=== PATIENT | female | born 1940 | race Caucasian/White ===

== ENCOUNTER 2017-10-19 06:56 | Inpatient (IN) | payer MEDICARE, BC ==
[~2017-10-19] VITALS: Ht 162.6 cm; Wt 59.0 kg
[2017-10-19] MEDS ORDERED: diltiazem-D5W 125mg/125ml 125 ML IV ONE (07:08)
[2017-10-19] MEDS ORDERED: diltiazem 5mg/ml 5ml inj. IV ONE ×2 (07:10→10:25)
[2017-10-19 08:20] LABS: BASOPHILS # (AUTO) 0.1 X10'3 (0-0.2); BASOPHILS % (AUTO) 0.6 % (0-1); EOSINOPHILS # (AUTO) 0.1 X10'3 (0-0.9); EOSINOPHILS % (AUTO) 1.7 % (0-6); HEMATOCRIT 40.4 % (35.0-45.0); HEMOGLOBIN 13.9 g/dl (12.0-16.0); LYMPHOCYTES # (AUTO) 1.6 X10'3 (1.1-4.8); LYMPHOCYTES % (AUTO) 18.4 % (21-51); MEAN CORPUSCULAR HEMOGLOBIN 32.1 PG (27.0-31.0); MEAN CORPUSCULAR HGB CONC 34.5 % (33.0-36.5); MEAN CORPUSCULAR VOLUME 93.2 FL (78-98); MEAN PLATELET VOLUME 8.4 FL (7.4-10.4); MONOCYTES # (AUTO) 0.6 X10'3 (0-0.9); NEUTROPHILS # (AUTO) 6.4 X10'3 (1.8-7.7); NEUTROPHILS % (AUTO) 72.3 % (42-75); PLATELET COUNT 381 X10'3 (140-440); RED BLOOD COUNT 4.34 X10'6 (4.20-5.60); RED CELL DISTRIBUTION WIDTH 13.7 % (11.5-14.5); WHITE BLOOD COUNT 8.9 X10'3 (4.5-11.0)
[2017-10-19 08:34] LABS: PARTIAL THROMBOPLASTIN TIME 30 SECONDS (22-32); PROTHROMBIN TIME 10.1 SECONDS (9.0-12.0)
[2017-10-19 08:36] LABS: ALANINE AMINOTRANSFERASE 36 U/L (12-78); ALBUMIN 3.8 G/DL (3.4-5.0); ALBUMIN/GLOBULIN RATIO 0.9 (1.1-1.5); ALKALINE PHOSPHATASE 121 IU/L (46-116); ANION GAP 12 (8-16); ASPARTATE AMINO TRANSFERASE 16 U/L (10-37); BILIRUBIN,TOTAL 0.4 MG/DL (0.1-1.0); BLOOD UREA NITROGEN 14 MG/DL (7-18); CALCIUM 9.3 MG/DL (8.5-10.1); CHLORIDE 102 MMOL/L (99-107); GLUCOSE 132 MG/DL (70-104); POTASSIUM 3.6 MMOL/L (3.5-5.1); SODIUM 142 MMOL/L (135-145); TOTAL CARBON DIOXIDE 28.4 MMOL/L (24-32); TOTAL PROTEIN 8.1 G/DL (6.4-8.2); eGFR 81 ML/MIN
[2017-10-19] MEDS: normal saline 1000ml 1,000 ML IV SCH (08:53)
[2017-10-19] MEDS ORDERED: potassium Cl 20 mEq SR tablet PO PRN ×2 (08:55)
[2017-10-19] MEDS ORDERED: potassium Cl 40MEQ/NS 500ml 500 ML IV PRN ×2 (08:55)
[2017-10-19] MEDS ORDERED: magnesium hydroxide 30ml (MOM) UD suspension PO PRN (08:55)
[2017-10-19] MEDS ORDERED: magnesium Cl slow-release 64mg tablet PO PRN (08:55)
[2017-10-19] MEDS ORDERED: magnesium 4gm in 100ml NS 100 ML IV PRN (08:55)
[2017-10-19] MEDS ORDERED: mag hydrox/Alum hydrox/simeth 30ml oral suspension PO PRN (08:55)
[2017-10-19] MEDS ORDERED: ondansetron/PF 4mg/2ml inj IV PRN (08:55)
[2017-10-19] MEDS ORDERED: diltiazem-D5W 125mg/125ml 125 ML IV SCH (08:55)
[2017-10-19] MEDS ORDERED: magnesium 2GM in 50ml NS 50 ML IV PRN (08:55)
[2017-10-19] MEDS ORDERED: acetaminophen 325mg tablet PO PRN (08:55)
[2017-10-19] MEDS: diltiazem-D5W 125mg/125ml 125 ML IV SCH ×2 (10:25→17:37)
[2017-10-19] MEDS ORDERED: CARSR60C PO (10:57)
[2017-10-19] MEDS ORDERED: APIX5TAB3 PO (10:57)
[2017-10-19] MEDS ORDERED: ATOR10TA87 PO (10:59)
[2017-10-19] MEDS ORDERED: [UNRECOGNIZED DRUG - CODE] (10:59)
[2017-10-19] MEDS ORDERED: NORT10CA81 PO (14:41)
[2017-10-19 18:00] VITALS: BP 149/74
[2017-10-19 19:00] VITALS: BP 153/74
[2017-10-19 20:00] VITALS: BP 143/65
[2017-10-19] MEDS: nortriptyline 10mg capsule PO SCH (20:09)
[2017-10-19] MEDS: diltiazem SR 60mg capsule (twice daily) PO SCH (20:09)
[2017-10-19] MEDS: furosemide 40mg/4ml inj IV SCH (22:00)
[2017-10-19 23:00] VITALS: BP 148/67
[2017-10-20 03:00] VITALS: BP 141/72
[2017-10-20 06:00] VITALS: BP 129/69
[2017-10-20 06:21] LABS: HEMATOCRIT 36.1 % (35.0-45.0); HEMOGLOBIN 12.6 g/dl (12.0-16.0); MEAN CORPUSCULAR HEMOGLOBIN 32.6 PG (27.0-31.0); MEAN PLATELET VOLUME 8.1 FL (7.4-10.4); PLATELET COUNT 382 X10'3 (140-440); RED BLOOD COUNT 3.88 X10'6 (4.20-5.60); RED CELL DISTRIBUTION WIDTH 13.6 % (11.5-14.5); WHITE BLOOD COUNT 7.6 X10'3 (4.5-11.0)
[2017-10-20 06:38] LABS: ALBUMIN 3.2 G/DL (3.4-5.0); ANION GAP 7 (8-16); BLOOD UREA NITROGEN 11 MG/DL (7-18); BUN/CREATININE RATIO 18.3 (6.6-38.0); CALCIUM 8.9 MG/DL (8.5-10.1); CHLORIDE 103 MMOL/L (99-107); GLUCOSE 102 MG/DL (70-104); PHOSPHORUS 4.6 MG/DL (2.3-4.5); POTASSIUM 3.5 MMOL/L (3.5-5.1); SODIUM 142 MMOL/L (135-145); TOTAL CARBON DIOXIDE 31.8 MMOL/L (24-32); eGFR > 90 ML/MIN
[2017-10-20] MEDS ORDERED: enoxaparin 40mg/0.4ml syringe SQ SCH (08:00)
[2017-10-20] MEDS: atorvastatin 10mg tablet PO SCH (08:23)
[2017-10-20] MEDS: diltiazem SR 60mg capsule (twice daily) PO SCH ×2 (08:23→20:10)
[2017-10-20] MEDS: furosemide 40mg/4ml inj IV SCH ×2 (08:23→20:10)
[2017-10-20] MEDS: K and/or MAG REPLACEMENT MC SCH (09:07)
[2017-10-20 11:00] VITALS: BP 127/70
[2017-10-20 18:30] VITALS: BP 121/70
[2017-10-20] MEDS: nortriptyline 10mg capsule PO SCH (20:10)
[2017-10-20 23:00] VITALS: BP 127/71
[2017-10-21 03:00] VITALS: BP 130/61
[2017-10-21 06:00] VITALS: BP 122/64
[2017-10-21 06:05] LABS: HEMATOCRIT 38.9 % (35.0-45.0); HEMOGLOBIN 13.4 g/dl (12.0-16.0); MEAN CORPUSCULAR HEMOGLOBIN 32.1 PG (27.0-31.0); MEAN CORPUSCULAR HGB CONC 34.4 % (33.0-36.5); MEAN CORPUSCULAR VOLUME 93.4 FL (78-98); MEAN PLATELET VOLUME 8.3 FL (7.4-10.4); PLATELET COUNT 398 X10'3 (140-440); RED BLOOD COUNT 4.16 X10'6 (4.20-5.60); RED CELL DISTRIBUTION WIDTH 13.7 % (11.5-14.5); WHITE BLOOD COUNT 7.2 X10'3 (4.5-11.0)
[2017-10-21 06:16] LABS: PROTHROMBIN TIME 10.2 SECONDS (9.0-12.0)
[2017-10-21] MEDS: diltiazem-D5W 125mg/125ml 125 ML IV SCH (06:21)
[2017-10-21 06:25] LABS: ALBUMIN 3.1 G/DL (3.4-5.0); ANION GAP 7 (8-16); BLOOD UREA NITROGEN 19 MG/DL (7-18); BUN/CREATININE RATIO 27.1 (6.6-38.0); CALCIUM 9.1 MG/DL (8.5-10.1); CHLORIDE 100 MMOL/L (99-107); GLUCOSE 96 MG/DL (70-104); PHOSPHORUS 4.5 MG/DL (2.3-4.5); POTASSIUM 3.6 MMOL/L (3.5-5.1); SODIUM 141 MMOL/L (135-145); TOTAL CARBON DIOXIDE 34.5 MMOL/L (24-32); eGFR 81 ML/MIN
[2017-10-21] MEDS: furosemide 40mg/4ml inj IV SCH (07:47)
[2017-10-21] MEDS: atorvastatin 10mg tablet PO SCH (07:47)
[2017-10-21] MEDS: diltiazem SR 60mg capsule (twice daily) PO SCH (07:47)
[2017-10-21] MEDS: K and/or MAG REPLACEMENT MC SCH (07:52)
[2017-10-21] MEDS: normal saline 1000ml 1,000 ML IV SCH (08:53)
[2017-10-21 11:00] VITALS: BP 105/61
[2017-10-21] MEDS ORDERED: DILT180C66 PO (13:13)
== END 2017-10-21 14:00 | disposition home or self-care (01) | DRG 308 ==
LOC: ER 06:56 → ED HOLD 08:53 → PCU 3S 16:47
PROVIDERS: ADMIT Family Medicine; ATTEND Family Medicine
DX: I48.91 Unspecified atrial fibrillation (principal); I50.33 Acute on chronic diastolic (congestive) heart failure; E78.5 Hyperlipidemia, unspecified; H81.09 Meniere's disease, unspecified ear; I65.23 Occlusion and stenosis of bilateral carotid arteries; Z90.49 Acquired absence of other specified parts of digestive tract; Z79.01 Long term (current) use of anticoagulants; Z88.6 Allergy status to analgesic agent; Z88.2 Allergy status to sulfonamides; Z85.51 Personal history of malignant neoplasm of bladder; Z85.820 Personal history of malignant melanoma of skin; Z86.73 Personal history of transient ischemic attack (TIA), and cerebral infarction without residual deficits; Z87.891 Personal history of nicotine dependence
CPT/HCPCS: 36415; 71045; 76604; 80048; 80053; 83735; 84100; 84443; 84484; 85025; 85027; 85610; 85730; 87070; 93005; 93306; 94760; 96365; 96375; 99285; J1940; J3490; J7030

== ENCOUNTER 2017-12-22 23:41 | Emergency (ER) | payer MEDICARE, BC ==
[~2017-12-22] VITALS: Ht 162.6 cm; Wt 53.4 kg
[~2017-12-22 23:41] MED LIST: APIX5TAB3 PO; ATOR10TA87 PO; NORT10CA81 PO
[2017-12-23] MEDS ORDERED: diltiazem 30mg tablet PO ONE (00:35)
[2017-12-23 01:06] LABS: BASOPHILS # (AUTO) 0.1 X10'3 (0-0.2); BASOPHILS % (AUTO) 1.7 % (0-1); EOSINOPHILS # (AUTO) 0.1 X10'3 (0-0.9); EOSINOPHILS % (AUTO) 1.8 % (0-6); HEMATOCRIT 39.7 % (35.0-45.0); LYMPHOCYTES # (AUTO) 2.3 X10'3 (1.1-4.8); LYMPHOCYTES % (AUTO) 27.8 % (21-51); MEAN CORPUSCULAR HEMOGLOBIN 30.3 PG (27.0-31.0); MEAN CORPUSCULAR HGB CONC 32.9 % (33.0-36.5); MEAN PLATELET VOLUME 8.6 FL (7.4-10.4); MONOCYTES # (AUTO) 0.8 X10'3 (0-0.9); NEUTROPHILS # (AUTO) 4.9 X10'3 (1.8-7.7); NEUTROPHILS % (AUTO) 58.7 % (42-75); PLATELET COUNT 368 X10'3 (140-440); RED BLOOD COUNT 4.31 X10'6 (4.20-5.60); RED CELL DISTRIBUTION WIDTH 12.3 % (11.5-14.5); WHITE BLOOD COUNT 8.2 X10'3 (4.5-11.0)
[2017-12-23 01:17] LABS: PARTIAL THROMBOPLASTIN TIME 30 SECONDS (22-32); PROTHROMBIN TIME 10.6 SECONDS (9.0-12.0)
[2017-12-23 01:20] LABS: ALANINE AMINOTRANSFERASE 38 U/L (12-78); ALBUMIN 3.7 G/DL (3.4-5.0); ALBUMIN/GLOBULIN RATIO 0.9 (1.1-1.5); ALKALINE PHOSPHATASE 111 IU/L (46-116); ANION GAP 14 (8-16); ASPARTATE AMINO TRANSFERASE 21 U/L (10-37); BILIRUBIN,TOTAL 0.5 MG/DL (0.1-1.0); BLOOD UREA NITROGEN 28 MG/DL (7-18); BUN/CREATININE RATIO 25.2 (6.6-38.0); CALCIUM 9.1 MG/DL (8.5-10.1); CHLORIDE 100 MMOL/L (99-107); CREATININE 1.11 MG/DL (0.40-0.90); GLUCOSE 116 MG/DL (70-104); SODIUM 142 MMOL/L (135-145); TOTAL CARBON DIOXIDE 28.5 MMOL/L (24-32); TOTAL PROTEIN 7.9 G/DL (6.4-8.2); eGFR 47 ML/MIN
[2017-12-23 01:25] VITALS: BP 131/82
[2017-12-23] MEDS ORDERED: potassium Cl 20 mEq SR tablet PO ONE (01:30)
== END 2017-12-23 02:20 | disposition home or self-care (01) ==
LOC: ER 23:42
DX: I48.92 Unspecified atrial flutter (principal); E87.6 Hypokalemia; R00.2 Palpitations; I48.91 Unspecified atrial fibrillation; R07.89 Other chest pain; Z86.73 Personal history of transient ischemic attack (TIA), and cerebral infarction without residual deficits; Z88.2 Allergy status to sulfonamides; Z88.8 Allergy status to other drugs, medicaments and biological substances; Z79.01 Long term (current) use of anticoagulants; Z79.899 Other long term (current) drug therapy
CPT/HCPCS: 36415; 71045; 80053; 83735; 84484; 85025; 85610; 85730; 93005; 99285

== ENCOUNTER 2018-05-18 12:19 | Inpatient (IN) | payer MEDICARE, BC ==
[2018-05-11 15:15] LABS: BASOPHILS # (AUTO) 0.1 X10'3 (0-0.2); BASOPHILS % (AUTO) 0.7 % (0-1); EOSINOPHILS # (AUTO) 0.7 X10'3 (0-0.9); EOSINOPHILS % (AUTO) 8.1 % (0-6); LYMPHOCYTES # (AUTO) 1.9 X10'3 (1.1-4.8); LYMPHOCYTES % (AUTO) 23.1 % (21-51); MEAN CORPUSCULAR HEMOGLOBIN 31.8 PG (27.0-31.0); MEAN CORPUSCULAR HGB CONC 33.9 % (33.0-36.5); MEAN CORPUSCULAR VOLUME 93.9 FL (78-98); MONOCYTES # (AUTO) 0.8 X10'3 (0-0.9); MONOCYTES % (AUTO) 9.9 % (2-12); NEUTROPHILS # (AUTO) 4.8 X10'3 (1.8-7.7); NEUTROPHILS % (AUTO) 58.2 % (42-75); PRE OP HEMATOCRIT 37.4 % (35.0-45.0); PRE OP HEMOGLOBIN 12.7 g/dL (12.0-16.0); PRE OP PLATELET COUNT 431 X10'3 (140-440); RED BLOOD COUNT 3.99 X10'6 (4.20-5.60); RED CELL DISTRIBUTION WIDTH 13.4 % (11.5-14.5)
[2018-05-11 15:26] LABS: PRE OP PROTIME 10.7 SECONDS (9.0-12.0)
[2018-05-11 15:32] LABS: ALBUMIN 3.3 G/DL (3.4-5.0); ALBUMIN/GLOBULIN RATIO 0.8 (1.1-1.5); ALKALINE PHOSPHATASE 190 IU/L (46-116); BLOOD UREA NITROGEN 23 MG/DL (7-18); BUN/CREATININE RATIO 23.5 (6.6-38.0); CALCIUM 9.1 MG/DL (8.5-10.1); CHLORIDE 100 MMOL/L (99-107); CREATININE 0.98 MG/DL (0.40-0.90); PRE OP ALT 23 U/L (30-65); PRE OP ANION GAP 6 (8-16); PRE OP AST 13 U/L (10-37); PRE OP BILIRUB, TOTAL 0.3 MG/DL (0.0-1.0); PRE OP GLUCOSE 118 MG/DL (70-104); PRE OP POTASSIUM 3.4 MMOL/L (3.4-5.1); PRE OP SODIUM 139 MMOL/L (135-145); TOTAL PROTEIN 7.4 G/DL (6.4-8.2); eGFR 55 ML/MIN
[~2018-05-18] VITALS: Ht 160 cm; Wt 57.7 kg
[2018-05-18] VITALS (16 sets, daily range): BP systolic 91–153; BP diastolic 48–73
[~2018-05-18 12:19] MED LIST changes: +ASPI-611 PO; +DILT120T3 PO; +DRON400T2 PO; +DULO-31 PO; +FURO40TA4 PO; +MAGN400C PO; -NORT10CA81 PO; +POTA-82 PO; +cefazolin/dext.iso 2gm/50ml 50 ML IV ONE; +famotidine 20mg tablet PO ONE; +ringers solution, lacted 1,000 ML IV SCH; +vancomycin/NS 1 GM ADD-VANTAGE 250 ML IV ONE
[2018-05-18] MEDS ORDERED: ROPIVAcaine 0.5% (5mg/ml) 30ml vial ONE ×2 (14:21→14:38)
[2018-05-18] MEDS ORDERED: ketorolac trometh. 30mg/ml inj. ONE (14:21)
[2018-05-18] MEDS ORDERED: vancomycin 1,000mg inj ONE (14:21)
[2018-05-18] MEDS ORDERED: sevoflurane 250ml liquid IH ONE (14:32)
[2018-05-18] MEDS ORDERED: fentaNYL/PF 50MCG/1 ML 2ML syringe ONE (14:38)
[2018-05-18] MEDS ORDERED: midazolam 2 mg/2 ml injection ONE (14:38)
[2018-05-18] MEDS ORDERED: LIDOcaine 1%/PF 5ML 10 MG/ML VIAL ONE (14:57)
[2018-05-18] MEDS ORDERED: propofol inj 20 ML IV ONE (14:57)
[2018-05-18] MEDS ORDERED: ondansetron/PF 4mg/2ml inj ONE (15:22)
[2018-05-18] MEDS ORDERED: meperidine/PF 25mg/ml syringe IV PRN ×3 (16:05)
[2018-05-18] MEDS ORDERED: ringers solution, lacted 1,000 ML IV SCH (16:05)
[2018-05-18] MEDS ORDERED: ondansetron/PF 4mg/2ml inj IV PRN ×2 (16:05→16:50)
[2018-05-18] MEDS ORDERED: proCHLORperazine 10 MG/2 ml inj IV PRN (16:05)
[2018-05-18] MEDS ORDERED: morphine 4 MG/ML inj SYRINge IV PRN ×2 (16:05)
[2018-05-18] MEDS ORDERED: magnesium hydroxide 30ml (MOM) UD suspension PO PRN (16:50)
[2018-05-18] MEDS ORDERED: acetaminophen 325mg tablet PO PRN (16:50)
[2018-05-18] MEDS ORDERED: diphenhydrAMINE 25mg capsule PO PRN ×2 (16:50)
[2018-05-18] MEDS ORDERED: HYDROmorphone inj. 0.5 MG/0.5 ML DISP.SYRIN IV PRN ×2 (16:50)
[2018-05-18] MEDS ORDERED: oxyCODONE IR 5mg (immed. release) tablet PO PRN ×2 (16:50)
[2018-05-18] MEDS ORDERED: bisacodyl 10mg suppository rectal RC PRN (16:50)
[2018-05-18] MEDS: furosemide 40mg tablet PO SCH (20:00)
[2018-05-18] MEDS ORDERED: DILTIAZEM HCL 120 MG PO SCH (20:00)
[2018-05-18] MEDS ORDERED: vancomycin/NS 1 GM ADD-VANTAGE 250 ML IV SCH (20:00)
[2018-05-18] MEDS: diltiazem CD 120mg capsule (once-daily) PO SCH (20:00)
[2018-05-18] MEDS ORDERED: sennosides 8.6mg tablet PO SCH (21:00)
[2018-05-18] MEDS: ketorolac tromethamine 15mg/ml inj. IV SCH (22:03)
[2018-05-18] MEDS: gabapentin 300mg capsule PO SCH (22:03)
[2018-05-18] MEDS: acetaminophen 325mg tablet PO SCH (22:03)
[2018-05-18] MEDS: apixaban 5mg tablet PO SCH (22:03)
[2018-05-18] MEDS: dronedarone hcl 400mg tablet PO SCH (22:03)
[2018-05-18] MEDS: potassium cl 20mEq in 1/2 NS 1,000 ML IV SCH (22:07)
[2018-05-19] MEDS: potassium cl 20mEq in 1/2 NS 1,000 ML IV SCH ×2 (00:50→08:45)
[2018-05-19] MEDS: ketorolac tromethamine 15mg/ml inj. IV SCH ×3 (01:24→14:00)
[2018-05-19] MEDS: acetaminophen 325mg tablet PO SCH ×3 (01:32→14:00)
[2018-05-19] MEDS: ceFAZolin 1GM/D5W- ADD-VANTAGE 50 ML IV SCH ×2 (01:34→08:44)
[2018-05-19 02:00] VITALS: BP 108/59
[2018-05-19 06:00] VITALS: BP 113/67
[2018-05-19 06:24] LABS: BASOPHILS % (AUTO) 0.1 % (0-1); EOSINOPHILS # (AUTO) 0.1 X10'3 (0-0.9); EOSINOPHILS % (AUTO) 0.7 % (0-6); HEMATOCRIT 31.1 % (35.0-45.0); HEMOGLOBIN 10.4 g/dl (12.0-16.0); LYMPHOCYTES # (AUTO) 0.7 X10'3 (1.1-4.8); LYMPHOCYTES % (AUTO) 7.5 % (21-51); MEAN CORPUSCULAR HEMOGLOBIN 31.3 PG (27.0-31.0); MEAN CORPUSCULAR HGB CONC 33.5 % (33.0-36.5); MEAN CORPUSCULAR VOLUME 93.3 FL (78-98); MEAN PLATELET VOLUME 9.1 FL (7.4-10.4); MONOCYTES # (AUTO) 0.7 X10'3 (0-0.9); MONOCYTES % (AUTO) 7.4 % (2-12); NEUTROPHILS # (AUTO) 7.9 X10'3 (1.8-7.7); NEUTROPHILS % (AUTO) 84.3 % (42-75); PLATELET COUNT 247 X10'3 (140-440); RED BLOOD COUNT 3.33 X10'6 (4.20-5.60); RED CELL DISTRIBUTION WIDTH 13.5 % (11.5-14.5); WHITE BLOOD COUNT 9.4 X10'3 (4.5-11.0)
[2018-05-19 06:36] LABS: ANION GAP 5 (8-16); CHLORIDE 103 MMOL/L (99-107); POTASSIUM 4.1 MMOL/L (3.5-5.1); SODIUM 136 MMOL/L (135-145); TOTAL CARBON DIOXIDE 28.1 MMOL/L (24-32)
[2018-05-19] MEDS ORDERED: atorvastatin 10mg tablet PO SCH (08:00)
[2018-05-19] MEDS ORDERED: aspirin 81mg tablet.DR PO SCH (08:00)
[2018-05-19] MEDS ORDERED: duloxetine 30mg CAPSULE.DR PO SCH (08:00)
[2018-05-19] MEDS ORDERED: non-formulary drug (Magnesium Oxide (Magnesium) 1 CAP) PO SCH (08:00)
[2018-05-19] MEDS ORDERED: non-formulary drug (Aspirin (Aspir 81) 1 TAB) PO SCH (08:00)
[2018-05-19] MEDS ORDERED: magnesium oxide 400mg tablet PO SCH (08:00)
[2018-05-19] MEDS ORDERED: potassium Cl 20 mEq SR tablet PO SCH (08:00)
[2018-05-19] MEDS ORDERED: non-formulary drug (Potassium Chloride 1 TAB) PO SCH (08:00)
[2018-05-19] MEDS: diltiazem CD 120mg capsule (once-daily) PO SCH (08:31)
[2018-05-19] MEDS: apixaban 5mg tablet PO SCH (08:31)
[2018-05-19] MEDS: gabapentin 300mg capsule PO SCH ×2 (08:32→13:00)
[2018-05-19] MEDS: furosemide 40mg tablet PO SCH (08:32)
[2018-05-19] MEDS: dronedarone hcl 400mg tablet PO SCH (08:32)
[2018-05-19] MEDS ORDERED: OXYCODONE HCL 10 MG PO (09:25)
[2018-05-19 10:00] VITALS: BP 115/57
[2018-05-19] MEDS ORDERED: Protein Smoothie (high protein) 240ml (8oz) cup PO SCH (13:00)
[2018-05-19] MEDS ORDERED: celeCOXIB 100mg capsule PO SCH (20:00)
[2018-05-20] MEDS ORDERED: acetaminophen 325mg tablet PO PRN (16:50)
== END 2018-05-19 15:15 | disposition home health service (06) | DRG 483 ==
LOC: PAS IN 12:19 → EDSTATUS 16:00 → ORTHO 4S 17:50
PROVIDERS: ADMIT Orthopaedic Surgery; ATTEND Orthopaedic Surgery
PROC: 0LS30ZZ Reposition Right Upper Arm Tendon, Open Approach (ICD-10-PCS; 2018-05-18)
PROC: 3E0T3BZ Introduction of Anesthetic Agent into Peripheral Nerves and Plexi, Percutaneous Approach (ICD-10-PCS; 2018-05-18)
PROC: 0RRJ00Z Replacement of Right Shoulder Joint with Reverse Ball and Socket Synthetic Substitute, Open Approach (ICD-10-PCS; principal; 2018-05-18 14:37)
DX: S42.221A 2-part displaced fracture of surgical neck of right humerus, initial encounter for closed fracture (principal); D62 Acute posthemorrhagic anemia; I48.92 Unspecified atrial flutter; M75.21 Bicipital tendinitis, right shoulder; E78.5 Hyperlipidemia, unspecified; F32.9 Major depressive disorder, single episode, unspecified; M65.811 Other synovitis and tenosynovitis, right shoulder; Z88.2 Allergy status to sulfonamides; Z88.8 Allergy status to other drugs, medicaments and biological substances; Z79.899 Other long term (current) drug therapy; Z79.82 Long term (current) use of aspirin; Z85.51 Personal history of malignant neoplasm of bladder; Z86.73 Personal history of transient ischemic attack (TIA), and cerebral infarction without residual deficits; V49.9XXA Car occupant (driver) (passenger) injured in unspecified traffic accident, initial encounter; Y93.89 Activity, other specified; Y92.89 Other specified places as the place of occurrence of the external cause; Y99.8 Other external cause status
CPT/HCPCS: 36415; 80051; 80053; 85025; 85610; 85730; 93005; 97110; 97116; 97162; 97530; A4565; A7000; J0690; J1885; J2001; J2250; J2405; J2704; J2795; J3010; J3370; J7030; J7040; J7120

== ENCOUNTER 2018-05-27 14:38 | Inpatient (IN) | payer MEDICARE, BC ==
[~2018-05-27] VITALS: Ht 160 cm; Wt 59.5 kg
[~2018-05-27 14:38] MED LIST changes: +OXYCODONE HCL 10 MG PO; -cefazolin/dext.iso 2gm/50ml 50 ML IV ONE; -famotidine 20mg tablet PO ONE; -ringers solution, lacted 1,000 ML IV SCH; -vancomycin/NS 1 GM ADD-VANTAGE 250 ML IV ONE
[2018-05-27 15:11] LABS: BASOPHILS # (AUTO) 0.1 X10'3 (0-0.2); BASOPHILS % (AUTO) 0.5 % (0-1); EOSINOPHILS # (AUTO) 1.8 X10'3 (0-0.9); EOSINOPHILS % (AUTO) 12.7 % (0-6); HEMATOCRIT 33.3 % (35.0-45.0); HEMOGLOBIN 11.2 g/dl (12.0-16.0); LYMPHOCYTES # (AUTO) 1.8 X10'3 (1.1-4.8); LYMPHOCYTES % (AUTO) 12.7 % (21-51); MEAN CORPUSCULAR HEMOGLOBIN 31.9 PG (27.0-31.0); MEAN CORPUSCULAR HGB CONC 33.7 % (33.0-36.5); MEAN CORPUSCULAR VOLUME 94.6 FL (78-98); MONOCYTES # (AUTO) 1.3 X10'3 (0-0.9); MONOCYTES % (AUTO) 9.3 % (2-12); NEUTROPHILS # (AUTO) 9.1 X10'3 (1.8-7.7); NEUTROPHILS % (AUTO) 64.8 % (42-75); PLATELET COUNT 578 X10'3 (140-440); RED BLOOD COUNT 3.52 X10'6 (4.20-5.60); RED CELL DISTRIBUTION WIDTH 14.2 % (11.5-14.5); WHITE BLOOD COUNT 14.1 X10'3 (4.5-11.0)
[2018-05-27 15:26] LABS: PARTIAL THROMBOPLASTIN TIME 30 SECONDS (22-32); PROTHROMBIN TIME 10.4 SECONDS (9.0-12.0)
[2018-05-27 15:38] LABS: ALANINE AMINOTRANSFERASE 95 U/L (12-78); ALBUMIN 3.1 G/DL (3.4-5.0); ALBUMIN/GLOBULIN RATIO 0.7 (1.1-1.5); ALKALINE PHOSPHATASE 246 IU/L (46-116); ANION GAP 9 (8-16); ASPARTATE AMINO TRANSFERASE 17 U/L (10-37); BILIRUBIN,TOTAL 0.5 MG/DL (0.1-1.0); BLOOD UREA NITROGEN 21 MG/DL (7-18); CALCIUM 9.2 MG/DL (8.5-10.1); CHLORIDE 98 MMOL/L (99-107); GLUCOSE 128 MG/DL (70-104); POTASSIUM 3.5 MMOL/L (3.5-5.1); SODIUM 139 MMOL/L (135-145); TOTAL CARBON DIOXIDE 31.8 MMOL/L (24-32); TOTAL PROTEIN 7.5 G/DL (6.4-8.2); TROPONIN I < 0.04 NG/ML (0.0-0.05); eGFR 53 ML/MIN
[2018-05-27] MEDS ORDERED: temazepam 15mg capsule PO PRN (21:00)
[2018-05-27] MEDS ORDERED: normal saline 1000ml 1,000 ML IV SCH (22:09)
[2018-05-27] MEDS ORDERED: HYDROcodone/acetaminophen 10/325mg tab PO PRN (22:10)
[2018-05-27] MEDS ORDERED: magnesium hydroxide 30ml (MOM) UD suspension PO PRN (22:10)
[2018-05-27] MEDS ORDERED: mag hydrox/Alum hydrox/simeth 30ml oral suspension PO PRN (22:10)
[2018-05-27] MEDS ORDERED: ondansetron/PF 4mg/2ml inj IV PRN (22:10)
[2018-05-27] MEDS ORDERED: acetaminophen 325mg tablet PO PRN (22:10)
[2018-05-27] MEDS ORDERED: morphine 2 MG/ML inj. syringe IV PRN ×2 (22:10)
[2018-05-27] MEDS ORDERED: metoclopramide 5 mg/ml inj IV PRN (22:10)
[2018-05-27] MEDS ORDERED: diphenhydrAMINE 25mg capsule PO PRN (22:10)
[2018-05-27] MEDS ORDERED: bisacodyl 10mg suppository rectal RC PRN (22:10)
[2018-05-27] MEDS ORDERED: HYDROmorphone inj. 0.5 MG/0.5 ML DISP.SYRIN IV PRN ×2 (22:10)
[2018-05-27] MEDS ORDERED: diphenhydrAMINE 50 mg/ml inj IV PRN (22:10)
[2018-05-27] MEDS: HYDROcodone/acetaminophen 5mg/325mg tablet PO PRN (22:32)
[2018-05-27 23:05] LABS: PROTHROMBIN TIME 10.1 SECONDS (9.0-12.0)
[2018-05-27 23:17] LABS: ALANINE AMINOTRANSFERASE 94 U/L (12-78); ALBUMIN 3.1 G/DL (3.4-5.0); ALBUMIN/GLOBULIN RATIO 0.7 (1.1-1.5); ALKALINE PHOSPHATASE 231 IU/L (46-116); ANION GAP 6 (8-16); ASPARTATE AMINO TRANSFERASE 16 U/L (10-37); BILIRUBIN,TOTAL 0.5 MG/DL (0.1-1.0); BLOOD UREA NITROGEN 19 MG/DL (7-18); BUN/CREATININE RATIO 24.1 (6.6-38.0); CALCIUM 9.5 MG/DL (8.5-10.1); CHLORIDE 100 MMOL/L (99-107); CREATININE 0.79 MG/DL (0.40-0.90); GLUCOSE 96 MG/DL (70-104); MAGNESIUM 2.5 MG/DL (1.5-2.4); PHOSPHORUS 4.4 MG/DL (2.3-4.5); POTASSIUM 3.2 MMOL/L (3.5-5.1); SODIUM 138 MMOL/L (135-145); TOTAL PROTEIN 7.4 G/DL (6.4-8.2); eGFR 70 ML/MIN
[2018-05-27 23:30] VITALS: BP 166/70
[2018-05-27 23:37] LABS: HEMOGLOBIN A1C 5.7 % (4.5-6.2)
[2018-05-28] VITALS (7 sets, daily range): BP systolic 108–152; BP diastolic 54–81
[2018-05-28] MEDS ORDERED: potassium Cl 20 mEq SR tablet PO PRN (03:35)
[2018-05-28] MEDS: HYDROcodone/acetaminophen 5mg/325mg tablet PO PRN ×3 (04:01→20:25)
[2018-05-28 06:17] LABS: BASOPHILS % (AUTO) 0.3 % (0-1); EOSINOPHILS # (AUTO) 1.7 X10'3 (0-0.9); EOSINOPHILS % (AUTO) 17.5 % (0-6); HEMATOCRIT 32.1 % (35.0-45.0); HEMOGLOBIN 10.8 g/dl (12.0-16.0); LYMPHOCYTES # (AUTO) 1.6 X10'3 (1.1-4.8); MEAN CORPUSCULAR HEMOGLOBIN 32.1 PG (27.0-31.0); MEAN CORPUSCULAR HGB CONC 33.7 % (33.0-36.5); MEAN CORPUSCULAR VOLUME 95.4 FL (78-98); MEAN PLATELET VOLUME 8.2 FL (7.4-10.4); MONOCYTES # (AUTO) 0.9 X10'3 (0-0.9); MONOCYTES % (AUTO) 9.6 % (2-12); NEUTROPHILS # (AUTO) 5.5 X10'3 (1.8-7.7); NEUTROPHILS % (AUTO) 56.6 % (42-75); PLATELET COUNT 545 X10'3 (140-440); RED BLOOD COUNT 3.36 X10'6 (4.20-5.60); RED CELL DISTRIBUTION WIDTH 14.3 % (11.5-14.5); WHITE BLOOD COUNT 9.8 X10'3 (4.5-11.0)
[2018-05-28 07:16] LABS: ALANINE AMINOTRANSFERASE 80 U/L (12-78); ALBUMIN 2.8 G/DL (3.4-5.0); ALBUMIN/GLOBULIN RATIO 0.7 (1.1-1.5); ALKALINE PHOSPHATASE 204 IU/L (46-116); ANION GAP 1 (8-16); ASPARTATE AMINO TRANSFERASE 17 U/L (10-37); BILIRUBIN,TOTAL 0.5 MG/DL (0.1-1.0); BLOOD UREA NITROGEN 15 MG/DL (7-18); BUN/CREATININE RATIO 21.4 (6.6-38.0); CALCIUM 9.5 MG/DL (8.5-10.1); CHLORIDE 101 MMOL/L (99-107); CHOL/HDL RATIO 2.2 (0.00-4.99); CHOLESTEROL 132 MG/DL (0-200); GLUCOSE 101 MG/DL (70-104); HDL CHOLESTEROL 59 MG/DL (35-60); LDL CHOLESTEROL 65 MG/DL (50-100); POTASSIUM 3.1 MMOL/L (3.5-5.1); SODIUM 134 MMOL/L (135-145); TOTAL CARBON DIOXIDE 31.7 MMOL/L (24-32); TOTAL PROTEIN 6.7 G/DL (6.4-8.2); TRIGLYCERIDES 32 MG/DL (20-135); eGFR 81 ML/MIN
[2018-05-28] MEDS ORDERED: atorvastatin 10mg tablet PO SCH ×2 (08:00→08:54)
[2018-05-28] MEDS: potassium Cl 20 mEq SR tablet PO PRN ×3 (08:21→22:05)
[2018-05-28] MEDS: apixaban 5mg tablet PO SCH ×2 (08:21→20:27)
[2018-05-28] MEDS: duloxetine 30mg CAPSULE.DR PO SCH (08:21)
[2018-05-28] MEDS: docusate sod 100mg capsule PO SCH ×2 (08:21→20:27)
[2018-05-28] MEDS: magnesium oxide 400mg tablet PO SCH (08:21)
[2018-05-28] MEDS: aspirin 81mg tablet.DR PO SCH (08:21)
[2018-05-28] MEDS: dronedarone hcl 400mg tablet PO SCH ×2 (08:21→20:27)
[2018-05-28] MEDS: diltiazem CD 120mg capsule (once-daily) PO SCH ×2 (08:21→20:25)
[2018-05-28] MEDS: furosemide 20 MG/2 ML vial IV SCH (08:22)
[2018-05-28] MEDS ORDERED: LORazepam 1 MG tablet PO ONE (09:15)
[2018-05-28] MEDS ORDERED: ROPIVAcaine 0.5% (5mg/ml) 30ml vial ONE (13:18)
[2018-05-28] MEDS ORDERED: famotidine 20mg tablet PO SCH (21:00)
[2018-05-29] MEDS: HYDROcodone/acetaminophen 5mg/325mg tablet PO PRN ×3 (01:24→14:06)
[2018-05-29 02:00] VITALS: BP 121/67
[2018-05-29 05:50] LABS: BASOPHILS # (AUTO) 0.1 X10'3 (0-0.2); BASOPHILS % (AUTO) 0.5 % (0-1); EOSINOPHILS # (AUTO) 1.9 X10'3 (0-0.9); EOSINOPHILS % (AUTO) 16.7 % (0-6); HEMATOCRIT 30.7 % (35.0-45.0); HEMOGLOBIN 10.4 g/dl (12.0-16.0); LYMPHOCYTES # (AUTO) 2.2 X10'3 (1.1-4.8); LYMPHOCYTES % (AUTO) 19.1 % (21-51); MEAN CORPUSCULAR HEMOGLOBIN 32.1 PG (27.0-31.0); MEAN CORPUSCULAR HGB CONC 33.9 % (33.0-36.5); MEAN CORPUSCULAR VOLUME 94.6 FL (78-98); MEAN PLATELET VOLUME 7.9 FL (7.4-10.4); MONOCYTES # (AUTO) 0.9 X10'3 (0-0.9); MONOCYTES % (AUTO) 7.9 % (2-12); NEUTROPHILS # (AUTO) 6.4 X10'3 (1.8-7.7); NEUTROPHILS % (AUTO) 55.8 % (42-75); PLATELET COUNT 558 X10'3 (140-440); RED BLOOD COUNT 3.25 X10'6 (4.20-5.60); RED CELL DISTRIBUTION WIDTH 14.5 % (11.5-14.5); WHITE BLOOD COUNT 11.4 X10'3 (4.5-11.0)
[2018-05-29 06:00] VITALS: BP 148/67
[2018-05-29 06:59] LABS: ALANINE AMINOTRANSFERASE 54 U/L (12-78); ALBUMIN 2.7 G/DL (3.4-5.0); ALBUMIN/GLOBULIN RATIO 0.7 (1.1-1.5); ALKALINE PHOSPHATASE 182 IU/L (46-116); ANION GAP 8 (8-16); ASPARTATE AMINO TRANSFERASE 15 U/L (10-37); BILIRUBIN,TOTAL 0.4 MG/DL (0.1-1.0); BLOOD UREA NITROGEN 23 MG/DL (7-18); BUN/CREATININE RATIO 29.5 (6.6-38.0); CALCIUM 8.9 MG/DL (8.5-10.1); CHLORIDE 102 MMOL/L (99-107); CREATININE 0.78 MG/DL (0.40-0.90); GLUCOSE 103 MG/DL (70-104); POTASSIUM 4.3 MMOL/L (3.5-5.1); SODIUM 139 MMOL/L (135-145); TOTAL CARBON DIOXIDE 29.4 MMOL/L (24-32); TOTAL PROTEIN 6.6 G/DL (6.4-8.2); eGFR 71 ML/MIN
[2018-05-29] MEDS: diltiazem CD 120mg capsule (once-daily) PO SCH (08:04)
[2018-05-29] MEDS: docusate sod 100mg capsule PO SCH (08:04)
[2018-05-29] MEDS: magnesium oxide 400mg tablet PO SCH (08:05)
[2018-05-29] MEDS: dronedarone hcl 400mg tablet PO SCH (08:05)
[2018-05-29] MEDS: aspirin 81mg tablet.DR PO SCH (08:05)
[2018-05-29] MEDS: apixaban 5mg tablet PO SCH (08:05)
[2018-05-29] MEDS: duloxetine 30mg CAPSULE.DR PO SCH (08:05)
[2018-05-29] MEDS: furosemide 20 MG/2 ML vial IV SCH (08:05)
[2018-05-29 10:00] VITALS: BP 106/54
== END 2018-05-29 16:10 | disposition home health service (06) | DRG 64 ==
LOC: ER 14:38 → ED HOLD 22:09 → ORTHO 4S 23:25
PROVIDERS: ADMIT Family Medicine; ATTEND Family Medicine
DX: I63.212 Cerebral infarction due to unspecified occlusion or stenosis of left vertebral artery (principal); I50.33 Acute on chronic diastolic (congestive) heart failure; I48.91 Unspecified atrial fibrillation; E78.5 Hyperlipidemia, unspecified; G83.11 Monoplegia of lower limb affecting right dominant side; E87.6 Hypokalemia; Z88.2 Allergy status to sulfonamides; Z91.018 Allergy to other foods; Z88.8 Allergy status to other drugs, medicaments and biological substances; Z79.82 Long term (current) use of aspirin; Z79.01 Long term (current) use of anticoagulants; Z79.899 Other long term (current) drug therapy; Z86.73 Personal history of transient ischemic attack (TIA), and cerebral infarction without residual deficits; Z82.49 Family history of ischemic heart disease and other diseases of the circulatory system
CPT/HCPCS: 36415; 70450; 70544; 70547; 70551; 71045; 71250; 80053; 80061; 83036; 83735; 83880; 84100; 84484; 85025; 85610; 85730; 87070; 93005; 93306; 93880; 97110; 97116; 97161; 99285; J1940; J2795; J7030

== ENCOUNTER 2018-08-24 05:25 | Day surgery (SDC) | payer MEDICARE, BC ==
[2018-08-20 15:45] LABS: BASOPHILS # (AUTO) 0.1 X10'3 (0-0.2); EOSINOPHILS # (AUTO) 0.4 X10'3 (0-0.9); LYMPHOCYTES # (AUTO) 2.6 X10'3 (1.1-4.8); LYMPHOCYTES % (AUTO) 33.7 % (21-51); MEAN CORPUSCULAR HEMOGLOBIN 30.7 PG (27.0-31.0); MEAN CORPUSCULAR HGB CONC 32.5 % (33.0-36.5); MEAN CORPUSCULAR VOLUME 94.4 FL (78-98); MONOCYTES # (AUTO) 0.7 X10'3 (0-0.9); NEUTROPHILS % (AUTO) 51.3 % (42-75); PRE OP HEMATOCRIT 41.3 % (35.0-45.0); PRE OP HEMOGLOBIN 13.4 g/dL (12.0-16.0); PRE OP PLATELET COUNT 399 X10'3 (140-440); RED BLOOD COUNT 4.38 X10'6 (4.20-5.60); RED CELL DISTRIBUTION WIDTH 14.6 % (11.5-14.5)
[2018-08-20 16:04] LABS: ALBUMIN 3.5 G/DL (3.4-5.0); ALBUMIN/GLOBULIN RATIO 0.9 (1.1-1.5); ALKALINE PHOSPHATASE 109 IU/L (46-116); BLOOD UREA NITROGEN 22 MG/DL (7-18); BUN/CREATININE RATIO 24.7 (6.6-38.0); CALCIUM 9.3 MG/DL (8.5-10.1); CHLORIDE 99 MMOL/L (99-107); CREATININE 0.89 MG/DL (0.40-0.90); PRE OP ALT 23 U/L (30-65); PRE OP ANION GAP 5 (8-16); PRE OP AST 15 U/L (10-37); PRE OP BILIRUB, TOTAL 0.3 MG/DL (0.0-1.0); PRE OP GLUCOSE 103 MG/DL (70-104); PRE OP SODIUM 140 MMOL/L (135-145); TOTAL CARBON DIOXIDE 36.2 MMOL/L (24-32); TOTAL PROTEIN 7.5 G/DL (6.4-8.2); eGFR 61 ML/MIN
[2018-08-20 16:08] LABS: PRE OP PROTIME 10.2 SECONDS (9.0-12.0)
[~2018-08-24] VITALS: Ht 160 cm; Wt 59.4 kg
[2018-08-24] VITALS (8 sets, daily range): BP systolic 108–133; BP diastolic 54–99
[~2018-08-24 05:25] MED LIST changes: -OXYCODONE HCL 10 MG PO; +ringers solution, lacted 1,000 ML IV SCH
[2018-08-24] MEDS ORDERED: famotidine 20mg tablet PO ONE (05:30)
[2018-08-24] MEDS ORDERED: LIDOcaine 1% (10mg/ml) 2ml vial ONE (05:53)
[2018-08-24] MEDS ORDERED: BUPIVAcaine/PF 2.5mg/ml (0.25%) 10ml vial ONE ×2 (06:44→07:28)
[2018-08-24] MEDS ORDERED: triamcinolone acetonide 40mg/ml inj ONE (06:44)
[2018-08-24] MEDS ORDERED: midazolam 2 mg/2 ml injection ONE (07:31)
[2018-08-24] MEDS ORDERED: fentaNYL/PF 50MCG/1 ML 2ML syringe ONE (07:31)
[2018-08-24] MEDS ORDERED: sevoflurane 250ml liquid IH ONE (07:33)
[2018-08-24] MEDS ORDERED: ringers solution, lacted 1,000 ML IV SCH (08:14)
[2018-08-24] MEDS ORDERED: HYDROmorphone inj. 0.5 MG/0.5 ML DISP.SYRIN IV PRN (08:15)
[2018-08-24] MEDS ORDERED: ondansetron/PF 4mg/2ml inj IV PRN (08:15)
[2018-08-24] MEDS ORDERED: morphine 4 MG/ML inj SYRINge IV PRN (08:15)
[2018-08-24] MEDS ORDERED: HYDROcodone/acetaminophen 10/325mg tab PO PRN (08:20)
[2018-08-24] MEDS ORDERED: HYDROcodone/acetaminophen 10/325mg tab PO ONE (08:40)
[2018-08-24] MEDS ORDERED: ondansetron/PF 4mg/2ml inj ONE (09:26)
[2018-08-24] MEDS ORDERED: LIDOcaine 1%/PF 5ML 10 MG/ML VIAL ONE (09:26)
[2018-08-24] MEDS ORDERED: propofol inj 20 ML IV ONE (09:26)
== END 2018-08-24 09:15 | disposition home or self-care (01) ==
LOC: PAS 05:25
PROVIDERS: ATTEND Orthopaedic Surgery
DX: M75.01 Adhesive capsulitis of right shoulder (principal); M85.811 Other specified disorders of bone density and structure, right shoulder; I48.91 Unspecified atrial fibrillation; J90 Pleural effusion, not elsewhere classified; I49.8 Other specified cardiac arrhythmias; E78.5 Hyperlipidemia, unspecified; K21.9 Gastro-esophageal reflux disease without esophagitis; H91.8X1 Other specified hearing loss, right ear; F41.8 Other specified anxiety disorders; I50.9 Heart failure, unspecified; Z72.89 Other problems related to lifestyle; Z86.73 Personal history of transient ischemic attack (TIA), and cerebral infarction without residual deficits; Z86.14 Personal history of Methicillin resistant Staphylococcus aureus infection; Z79.82 Long term (current) use of aspirin; Z91.018 Allergy to other foods; Z87.891 Personal history of nicotine dependence; Z90.49 Acquired absence of other specified parts of digestive tract; Z85.820 Personal history of malignant melanoma of skin; Z85.51 Personal history of malignant neoplasm of bladder; Z96.611 Presence of right artificial shoulder joint; Z79.01 Long term (current) use of anticoagulants; Z88.2 Allergy status to sulfonamides; Z88.8 Allergy status to other drugs, medicaments and biological substances; Z79.899 Other long term (current) drug therapy; Z98.890 Other specified postprocedural states; Z82.49 Family history of ischemic heart disease and other diseases of the circulatory system
CPT/HCPCS: 23700; 36415; 71046; 73030; 80053; 85025; 85610; 85730; 93005; J2001; J2250; J2405; J2704; J3010; J3301; J3490; J7120